=== PATIENT | male | born 1955 | race Caucasian/White ===

== ENCOUNTER 2020-07-10 07:21 | Outpatient (REF) | payer OTHER, SELFPAY ==
[2020-07-10 11:15] LABS: MANUAL DIFF FLAG NO
[2020-07-10 11:28] LABS: Basophils Absolute Auto 0.1 X10*3/uL (0.0-0.2); Basophils Percent Auto 1.1 % (0-2); Eosinophils Absolute Auto 0.3 X10*3/uL (0.0-0.4); Eosinophils Percent Auto 5.1 % (0-4); Hematocrit 49.2 % (42-52); Hemoglobin 15.4 g/dl (14.0-18.0); Imm Gran Abs Auto 0.01 X10*3/uL (0.00-0.03); Imm Gran Pct Auto 0.2 % (0.0-0.4); Lymphocytes Absolute Auto 2.5 X10*3/uL (1.2-4.9); Lymphocytes Percent Auto 43.9 % (20-40); Mean Corpuscular HGB Conc 31.3 g/dl (31.0-36.0); Mean Corpuscular Hemoglobin 26.2 pg (27.0-33.0); Mean Corpuscular Volume 83.7 fL (80-98); Mean Platelet Volume 10.6 fL (9.4-12.4); Monocytes Absolute Auto 0.6 X10*3/uL (0.1-1.2); Monocytes Percent Auto 9.8 % (2-11); Neutrophils Absolute Auto 2.3 X10*3/uL (2.0-8.3); Neutrophils Percent Auto 39.9 % (45-73); Platelet Count 240 X10*3/uL (160-400); Red Blood Count 5.88 X10*6/uL (4.60-5.80); Red Cell Distribution Width 13.9 % (11.0-16.0); White Blood Count 5.7 X10*3/uL (4.8-10.8)
[2020-07-10 11:50] LABS: Alanine Aminotransferase 36 U/L (0-40); Albumin Level 4.3 g/dL (3.5-5.0); Alkaline Phosphatase 65 U/L (39-117); Anion Gap 12 (12-20); Aspartate Amino Transferase 17 U/L (5-37); Blood Urea Nitrogen 23 mg/dL (9-16); Carbon Dioxide 30 mmol/L (22-29); Chloride 105 mmol/L (96-108); Cholesterol 146 mg/dL; Estimated Glomerular Filt Rate > 60; Glucose Fasting 76 mg/dL (60-99); HDL Cholesterol 52 mg/dL; LDL Cholesterol Calculated 83 mg/dl; Potassium 3.9 mmol/L (3.3-5.1); Sodium 143 mmol/L (135-145); Total Protein 7.5 g/dL (6.5-8.0); Triglycerides 59 mg/dL
[2020-07-10 11:52] LABS: Prostate Specific Antigen 1.75 ng/mL (<0.05-4.0)
== END 2020-07-10 07:22 | disposition home or self-care (01) ==
LOC: HO.HMGCLDS 07:21
PROVIDERS: PCP Internal Medicine; Visit Provider Internal Medicine
DX: Z00.00 Encounter for general adult medical examination without abnormal findings (principal); Z13.220 Encounter for screening for lipoid disorders; Z12.5 Encounter for screening for malignant neoplasm of prostate
CPT/HCPCS: 36415; 80053; 80061; 84153; 85025

== ENCOUNTER 2021-06-19 08:21 | Outpatient (REF) | payer OTHER, SELFPAY ==
[2021-06-19 11:25] LABS: MANUAL DIFF FLAG NO
[2021-06-19 11:41] LABS: Basophils Absolute Auto 0.1 X10*3/uL (0.0-0.2); Basophils Percent Auto 0.8 % (0-2); Eosinophils Absolute Auto 0.3 X10*3/uL (0.0-0.4); Eosinophils Percent Auto 4.7 % (0-4); Hemoglobin 16.1 g/dl (14.0-18.0); Imm Gran Abs Auto 0.01 X10*3/uL (0.00-0.03); Imm Gran Pct Auto 0.2 % (0.0-0.4); Lymphocytes Absolute Auto 2.5 X10*3/uL (1.2-4.9); Lymphocytes Percent Auto 42.9 % (20-40); Mean Corpuscular HGB Conc 31.6 g/dl (31.0-36.0); Mean Corpuscular Hemoglobin 26.2 pg (27.0-33.0); Mean Corpuscular Volume 82.9 fL (80.0-98.0); Mean Platelet Volume 10.4 fL (9.4-12.4); Monocytes Absolute Auto 0.5 X10*3/uL (0.1-1.2); Monocytes Percent Auto 8.3 % (2-11); Neutrophils Absolute Auto 2.6 x10*3/uL (2.0-8.3); Neutrophils Percent Auto 43.1 % (45-73); Platelet Count 256 X10*3/uL (160-400); Red Blood Count 6.15 X10*6/uL (4.60-5.80); White Blood Count 5.9 X10*3/uL (4.8-10.8)
[2021-06-19 12:13] LABS: Alanine Aminotransferase 33 U/L (0-40); Albumin Level 4.2 g/dL (3.5-5.0); Alkaline Phosphatase 65 U/L (39-117); Anion Gap 12 (12-20); Aspartate Amino Transferase 15 U/L (5-37); Bilirubin Total 0.9 mg/dL (0.0-1.0); Blood Urea Nitrogen 18 mg/dL (9-16); Calcium 9.8 mg/dL (8.4-10.2); Carbon Dioxide 28 mmol/L (22-29); Chloride 105 mmol/L (96-108); Cholesterol 148 mg/dL; Estimated Glomerular Filt Rate > 60; Glucose Fasting 88 mg/dL (60-99); HDL Cholesterol 45 mg/dL; LDL Cholesterol Calculated 85 mg/dl; Potassium 4.2 mmol/L (3.3-5.1); Sodium 141 mmol/L (135-145); Total Protein 7.5 g/dL (6.5-8.0); Triglycerides 94 mg/dL
[2021-06-19 12:21] LABS: Prostate Specific Antigen Scr 2.12 ng/mL (<0.05-4.0)
== END 2021-06-19 08:22 | disposition home or self-care (01) ==
LOC: HO.HMGCLDS 08:21
PROVIDERS: Visit Provider Internal Medicine
DX: Z12.5 Encounter for screening for malignant neoplasm of prostate (principal); E78.00 Pure hypercholesterolemia, unspecified; N40.0 Benign prostatic hyperplasia without lower urinary tract symptoms; K57.90 Diverticulosis of intestine, part unspecified, without perforation or abscess without bleeding
CPT/HCPCS: 36415; 80053; 80061; 84153; 85025

== ENCOUNTER 2022-07-04 07:32 | Outpatient (REF) | payer MEDICARE, OTHER, SELFPAY ==
[2022-07-04 11:26] LABS: MANUAL DIFF FLAG NO
[2022-07-04 11:58] LABS: Basophils Absolute Auto 0.1 X10*3/uL (0.0-0.2); Eosinophils Absolute Auto 0.2 X10*3/uL (0.0-0.4); Eosinophils Percent Auto 3.6 % (0-4); Hematocrit 50.8 % (42.0-52.0); Hemoglobin 15.9 g/dl (14.0-18.0); Imm Gran Abs Auto 0.01 X10*3/uL (0.00-0.03); Imm Gran Pct Auto 0.2 % (0.0-0.4); Lymphocytes Absolute Auto 2.3 X10*3/uL (1.2-4.9); Lymphocytes Percent Auto 39.9 % (20-40); Mean Corpuscular HGB Conc 31.3 g/dl (31.0-36.0); Mean Corpuscular Hemoglobin 25.8 pg (27.0-33.0); Mean Corpuscular Volume 82.5 fL (80.0-98.0); Mean Platelet Volume 10.4 fL (9.4-12.4); Monocytes Absolute Auto 0.6 X10*3/uL (0.1-1.2); Monocytes Percent Auto 10.4 % (2-11); Neutrophils Absolute Auto 2.6 x10*3/uL (2.0-8.3); Neutrophils Percent Auto 44.9 % (45-73); Platelet Count 261 X10*3/uL (160-400); Red Blood Count 6.16 X10*6/uL (4.60-5.80); Red Cell Distribution Width 14.4 % (11.0-16.0); White Blood Count 5.8 X10*3/uL (4.8-10.8)
[2022-07-04 12:47] LABS: Alanine Aminotransferase 33 U/L (0-40); Albumin Level 4.2 g/dL (3.5-5.0); Alkaline Phosphatase 57 U/L (39-117); Anion Gap 12 (12-20); Aspartate Amino Transferase 19 U/L (5-37); Bilirubin Total 0.8 mg/dL (0.0-1.0); Blood Urea Nitrogen 21 mg/dL (9-16); Calcium 9.4 mg/dL (8.4-10.2); Carbon Dioxide 29 mmol/L (22-29); Chloride 106 mmol/L (96-108); Cholesterol 156 mg/dL; Estimated Glomerular Filt Rate > 60; Glucose Fasting 92 mg/dL (60-99); HDL Cholesterol 45 mg/dL; LDL Cholesterol Calculated 97 mg/dl; Potassium 4.3 mmol/L (3.3-5.1); Prostate Specific Antigen Scr 1.93 ng/mL (<0.05-4.0); Sodium 143 mmol/L (135-145); Total Protein 7.2 g/dL (6.5-8.0); Triglycerides 72 mg/dL
== END 2022-07-04 07:33 | disposition home or self-care (01) ==
LOC: HO.HMGCLDS 07:32
PROVIDERS: PCP Internal Medicine; Visit Provider Internal Medicine
DX: Z00.00 Encounter for general adult medical examination without abnormal findings (principal); Z12.5 Encounter for screening for malignant neoplasm of prostate
CPT/HCPCS: 36415; 80053; 80061; 84153; 85025

== ENCOUNTER 2023-07-08 07:18 | Outpatient (REF) | payer MEDICARE, OTHER, SELFPAY ==
[2023-07-08 10:14] LABS: MANUAL DIFF FLAG NO
[2023-07-08 10:36] LABS: Basophils Absolute Auto 0.1 X10*3/uL (0.0-0.2); Basophils Percent Auto 0.8 % (0-2); Eosinophils Absolute Auto 0.3 X10*3/uL (0.0-0.4); Hematocrit 51.1 % (42.0-52.0); Hemoglobin 16.3 g/dl (14.0-18.0); Imm Gran Abs Auto 0.01 X10*3/uL (0.00-0.03); Imm Gran Pct Auto 0.2 % (0.0-0.4); Lymphocytes Absolute Auto 2.4 X10*3/uL (1.2-4.9); Mean Corpuscular HGB Conc 31.9 g/dl (31.0-36.0); Mean Corpuscular Hemoglobin 26.5 pg (27.0-33.0); Mean Platelet Volume 10.2 fL (9.4-12.4); Monocytes Absolute Auto 0.6 X10*3/uL (0.1-1.2); Monocytes Percent Auto 9.9 % (2-11); Neutrophils Absolute Auto 2.7 x10*3/uL (2.0-8.3); Neutrophils Percent Auto 45.1 % (45-73); Platelet Count 254 X10*3/uL (160-400); Red Blood Count 6.16 X10*6/uL (4.60-5.80); Red Cell Distribution Width 14.4 % (11.0-16.0); White Blood Count 6.1 X10*3/uL (4.8-10.8)
[2023-07-08 11:12] LABS: Prostate Specific Antigen Scr 2.33 ng/mL (<0.05-4.0)
[2023-07-08 11:27] LABS: Alanine Aminotransferase 33 U/L (0-40); Albumin Level 4.1 g/dL (3.5-5.0); Alkaline Phosphatase 57 U/L (39-117); Anion Gap 13 (12-20); Aspartate Amino Transferase 19 U/L (5-37); Bilirubin Total 0.7 mg/dL (0.0-1.0); Blood Urea Nitrogen 19 mg/dL (9-16); Calcium 9.7 mg/dL (8.4-10.2); Carbon Dioxide 26 mmol/L (22-29); Chloride 106 mmol/L (96-108); Cholesterol 142 mg/dL (<200); Estimated Glomerular Filt Rate > 60; Glucose Fasting 93 mg/dL (60-99); HDL Cholesterol 45 mg/dL (>40); LDL Cholesterol Calculated 79 mg/dL (<100); Sodium 141 mmol/L (135-145); Total Protein 7.7 g/dL (6.5-8.0); Triglycerides 94 mg/dL (<150)
== END 2023-07-08 07:19 | disposition home or self-care (01) ==
LOC: HO.HMGCLDS 07:18
PROVIDERS: PCP Internal Medicine; Visit Provider Internal Medicine
DX: E78.00 Pure hypercholesterolemia, unspecified (principal); R35.1 Nocturia; K57.90 Diverticulosis of intestine, part unspecified, without perforation or abscess without bleeding; Z12.5 Encounter for screening for malignant neoplasm of prostate
CPT/HCPCS: 36415; 80053; 80061; 84153; 85025

== ENCOUNTER 2023-09-14 10:38 | Day surgery (SDC) | payer MEDICARE, OTHER, SELFPAY ==
[2023-09-10 14:41] VITALS: BMI 24.5
--- NOTE | 2023-09-11 10:04 | P.CONAN_ITS ---
Documented by User: Arleen Chopra NP 09/11/23 10:04 HPI - Anesthesia Eval Consult details Narrative: 68yo M for Colonoscopy [facility] Past Medical History Medical History Hyperlipidemia Surgical History Surgical History Hx of knee surgery History of esophagogastroduodenoscopy (EGD) H/O colonoscopy Social History Social History Patient Tobacco Use Status: Never used Tobacco Use of substances other than those prescribed or required for medical reasons: No Are you DNR?: No Advance Directives: No Advance Directives Information Provided: Yes Meds Allergies Allergy/AdvReac Type Severity Reaction Status Date / Time No Known Allergies Allergy Verified 09/10/23 14:37 Home Medications ?Medication ?Instructions ?Recorded ?Confirmed ?Last Taken ?Type calcium carbonate (Calcium 500) 500 mg PO DAILY 09/10/23 09/14/23 09/12/23 History glucosamine sulfate 500 mg tablet 500 mg PO DAILY 09/10/23 09/14/23 09/12/23 History (Glucosamine) magnesium 250 mg tablet 500 mg PO DAILY 09/10/23 09/14/23 09/12/23 History multivitamin 1 tab PO DAILY 09/10/23 09/14/23 09/12/23 History simvastatin 20 mg tablet 20 mg PO BEDTIME 09/10/23 09/14/23 09/12/23 History Exam Height,Weight and Vital Signs: Height 5 ft 9 in Weight 75.296 kg Assessment and Plan Assessment Anesthesia Assessment: Chart Reviewed Documented by User: Jordin Hensley MD 09/14/23 12:33 [facility] Past Medical History Medical History Hyperlipidemia Family History Family history of problems with anesthesia: No Surgical History Surgical History Hx of knee surgery History of esophagogastroduodenoscopy (EGD) H/O colonoscopy History of Problems with Anesthesia: No Social History Social History Patient Tobacco Use Status: Never used Tobacco Use of substances other than those prescribed or required for medical reasons: No Are you DNR?: No Advance Directives: No Advance Directives Information Provided: Yes Meds Allergies Allergy/AdvReac Type Severity Reaction Status Date / Time No Known Allergies Allergy Verified 09/10/23 14:37 Home Medications ?Medication ?Instructions ?Recorded ?Confirmed ?Last Taken ?Type calcium carbonate (Calcium 500) 500 mg PO DAILY 09/10/23 09/14/23 09/12/23 History glucosamine sulfate 500 mg tablet 500 mg PO DAILY 09/10/23 09/14/23 09/12/23 History (Glucosamine) magnesium 250 mg tablet 500 mg PO DAILY 09/10/23 09/14/23 09/12/23 History multivitamin 1 tab PO DAILY 09/10/23 09/14/23 09/12/23 History simvastatin 20 mg tablet 20 mg PO BEDTIME 09/10/23 09/14/23 09/12/23 History Exam Airway Mallampati Class: II TM Dist: >3cm Neck ROM: Full Loose/Missing/Broken Teeth: No Heart: rrr Lungs: cta Assessment and Plan Assessment Anesthesia Assessment: Anesthesia Plan Discussed Final Anesthetic Review Family History of Problems with Anesthesia: No History of Problems with Anesthesia: No NPO: Yes ASA Class: II Final Preanesthetic Review: No Changes in Pt Med Stat, Meds/Allgs Chart Reviewed, Consent Obtained/Reviewed and Anes Risks/Benef Reviewed Patient Risk: Intermediate Procedure Risk: Intermediate Anesthetic Plan Anesthetic Plan: TIVA Disposition: Standard PACU
[2023-09-14 10:42] VITALS: BP 145/80; PULSE 80; RESP 16; TEMP 36.2; O2SAT 100; BMI 22.9
[2023-09-14] MEDS: Lactated Ringers 1,000 ML 100 ML IVCONT (11:00)
[2023-09-14 13:30] VITALS: BP 93/55; PULSE 66; RESP 16; TEMP 36.8; O2SAT 94
--- NOTE | 2023-09-14 13:35 | PM.OP ---
Brief Operative Note Date of Service: 09/14/23 Pre-op diagnosis: Screening Post-op diagnosis: other (Colon polyps) Procedure: Colonoscopy to the cecum and TI with cold snare polypectomy x 2. Surgeon: Alexis Moon MD Anesthesia: MAC Was an Physician In Private Practice used for this Procedure?: No Estimated blood loss (mL): 2.0 Pathology: other (A. Ascending colon polyp B. Rectal polyp) Condition: stable Disposition: PACU
[2023-09-14 13:45] VITALS: BP 103/61; PULSE 72; RESP 16; O2SAT 99
[2023-09-14 14:00] VITALS: BP 110/69; PULSE 71; RESP 16; TEMP 36.8; O2SAT 99
--- NOTE | 2023-09-14 14:50 | OP_ITS ---
DATE OF SERVICE: 09/14/2023 SURGEON: Alexis Moon MD INDICATIONS: The patient presents for evaluation of personal history of tubular adenoma of the colon and colorectal cancer screening. Full consent has been obtained from him for this, including risks of bleeding and perforation. PREOPERATIVE DIAGNOSIS: POSTOPERATIVE DIAGNOSIS: PROCEDURE PERFORMED: Colonoscopy to cecum and terminal ileum with cold snare polypectomy. ESTIMATED BLOOD LOSS: COMPLICATIONS: ANESTHESIA: Monitored anesthesia care. ASSISTANTS: SPECIMENS: PREOPERATIVE DIAGNOSES: Colorectal cancer screening and personal history of tubular adenoma of the colon. POSTOPERATIVE DIAGNOSES: Colorectal cancer screening, personal history of tubular adenoma of the colon, small colon polyps, diverticulosis, and internal hemorrhoids. DESCRIPTION OF PROCEDURE: The patient was placed in the left lateral decubitus position. The digital rectal exam revealed no abnormalities. The Olympus video pediatric colonoscope was then entered into the rectum and advanced easily to the cecum. Once in the cecum, I did identify normal-appearing cecal pouch with appendiceal orifice and a normal-appearing ileocecal valve. The entire cecum and ileocecal valve appeared normal. The terminal ileum was cannulated and appeared normal. The scope was withdrawn back in the colon. The scope was slowly withdrawn assessing all mucosal surfaces carefully. Preparation was excellent. In the proximal ascending colon, was an approximately 5 mm polyp, which was removed by cold snare polypectomy and recovered by suction. The polypectomy site appeared clean, without any sign of residual polyp nor significant bleeding. There was a mild amount of sigmoid diverticulosis. I did not visualize any sign of colitis nor angiodysplasias. The only other polyp I visualized was in the distal rectum. This was approximately 4 mm in diameter and removed by cold snare polypectomy as well. The polyp was recovered by suction. The polypectomy site appeared clean, without any sign of residual polyp nor any significant bleeding. The scope was retroflexed, visualizing some internal hemorrhoids as well. The scope was straightened and withdrawn from the patient. He tolerated the procedure well and was returned to the recovery area in stable condition. IMPRESSION: 1. Colon polyps. 2. Diverticulosis. 3. Internal hemorrhoids. PLAN: The results of the pathology will be checked. I would recommend a repeat colonoscopy in 5 years. He will, otherwise, see me on a p.r.n. basis. MD JEREMY Reina/SILVIA / [id number]
== END 2023-09-14 15:08 | disposition home or self-care (01) ==
PROVIDERS: PCP Internal Medicine; Visit Provider Internal Medicine
PROC: 0DJD8ZZ Inspection of Lower Intestinal Tract, Via Natural or Artificial Opening Endoscopic (ICD-10-PCS; CPT 45378; principal; 2023-09-14 10:50)
DX: Z12.11 Encounter for screening for malignant neoplasm of colon (principal); D12.2 Benign neoplasm of ascending colon; D12.8 Benign neoplasm of rectum; K57.30 Diverticulosis of large intestine without perforation or abscess without bleeding; K64.8 Other hemorrhoids; Z86.010 Personal history of colon polyps
CPT/HCPCS: 45385; 88305; J2704

== ENCOUNTER 2024-10-19 15:01 | Outpatient (AMB) | payer MEDICARE, OTHER, SELFPAY ==
--- NOTE | 2024-10-19 15:01 | A.OFFPC_ITS ---
Vital Signs 10/19/24 15:06 Height 5 ft 8.5 in Weight 72.575 kg BMI 24.0 BP 136/76 Blood Pressure Location Lt brachial Position Sitting Respiration 16 Pulse 81 Pulse Source Pulse Oximeter Temp 97.5 F Pulse Oximetry (%) 96 Oxygen Delivery Method Room Air Intake Visit Reasons: Annual Marketing Communications Specialist Required: No Accompanied by: Self / Same As Patient Allergies No Known Allergies Allergy (Verified 10/19/24 15:01) Tobacco use date assessed: 10/19/24 HPI HPI Comments History of Present Illness Details 69-year-old male with history of hyperli pidemia presents to the office today for management of chronic conditions, to establish care. Lives at home and feels safe there. Retired. Works out regularly 5 hours weekly with cardio, weights, and core exercises. Follows a healthy diet. No significatn alcohol use. No history of cigarette smoking. No drugs including marijuana. Hyperlipidemia-on simvastatin Concerns: He is concerned about her his prostate. He is reporting intermittent nocturia between 1-3 times per night. He does occasionally have urinary urgency during the day. No weak stream or incomplete bladder emptying. Health maintenance: Last colonoscopy 09/2023 with 5 year follow-up advised, Dr. Moon due to tubular adenoma Due for screening PSA Goes to the eye doctor and dentist regularly Wear sunscreen ROS: General: No fevers, malaise, unintentional weight loss HEENT: No blurred vision, diplopia. No sore throat, nasal congestion, rhinorrhea, sinus pain, ear pain. No hearing loss Neck - no adenopathy Cardiovascular: No chest pain, palpitations, or leg edema Respiratory: No shortness of breath, wheezing, cough GI: No dysphagia, odynophagia, globus sensation. No abdominal pain, nausea, vomiting, diarrhea, constipation, melena, hematochezia : No dysuria, hematuria, increased urinary frequency, decreased urinary output. No testicular swelling or pain. No penile discharge MSK: No myalgia, back pain, arthralgias Neuro: No headaches, weakness, paresthesias Psych: no depression/anxiery. No AH/VH. No SI/HI Skin: No rashes or lesions EXAM: Constitutional - Awake and Alert, No apparent distress Eyes - PERRLA, EOMI. Anicteric Ears - external ears normal, canals clear, TMs intact and pearly rojas with good cone of light Nose- septum midline, nares clear, no sinus tenderness Mouth/throat- mucosa moist, tongue and uvula midline, no erythema/edema or tonsillar adenopathy. Neck-trachea midline, thyroid symmetric without palpable nodules, no adenopathy Cardiovascular - S1S2, RRR, No edema Respiratory - Normal lung expansion, Normal respiratory effort, No respiratory distress, CTA bilaterally Gastrointestinal - NT / ND; +BS; No rebound or guarding . Good rectal tone, 1+ prostate enlargement - No CVA tenderness. Extremities - no calf tenderness bilaterally, no swelling Musculoskeletal - Normal inspection, normal ROM Skin - Warm/Dry, no concerning lesions Neurological - Alert & oriented x3, CN II-XII in tact, 5/5 strength BUE and BLE, 2+ patellar reflexes, sensation intact Psychological - Appropriate affect [facility] Medical History (Updated 10/19/24 @ 17:25 by JODY Dunham) Tubular adenoma BPH (benign prostatic hyperplasia) Hyperlipidemia Surgical History (Updated 10/18/24 @ 15:59 by Ivette Metcalf) Hx of knee surgery History of esophagogastroduodenoscopy (EGD) H/O colonoscopy (~09/14/23) Social History Patient Tobacco Use Status: Never used Tobacco e-Cigarette/Vaping Use: Never Used Questionnaire PHQ-9 Over the last 2 weeks, how often have you been bothered by any of the following problems? 1. Little interest or pleasure in doing things: not at all 2. Feeling down, depressed, or hopeless: not at all 3. Trouble falling or staying asleep, or sleeping too much: not at all 4. Feeling tired or having little energy: not at all 5. Poor appetite or overeating: not at all 6. Feeling bad about yourself - or that you are a failure or have let yourself or your family down: not at all 7. Trouble concentrating on things, such as reading the newspaper or watching television: not at all 8. Moving or speaking so slowly that other people could have noticed. Or the opposite - being so fidgety or restless that you have been moving around a lot more than usual: not at all 9. Thoughts that you would be better off or of hurting yourself in some way: not at all Total score: 0 Source: Developed by Drs. Alexis Ramirez, Deja Dunaway, Rad Pepe and colleagues, with an educational ezequiel from [employer]. Thrive Questionnaire Date Thrive assessed: 10/19/24 I am a: Patient What is your living situation today?: I have a steady place to live Within the past 12 months, did the food you bought not last and you didn't have the money to get more?: Never true Within the past 12 months, did you worry whether your food would run out before you got money to buy more?: Never true Do you have trouble paying for medicines?: No Do you have trouble getting transportation to medical appointments?: No Do you have trouble paying your heating and electricity bill?: No Do you have trouble taking care of your child, family member or friend?: No Do you have trouble with day-to-day activities such as bathing, preparing meals, shopping, managing finances, etc.?: No Are you currently unemployed and looking for a job?: No Are you interested in more education?: No THRIVE Score: 0 AUDIT C Alcohol Use Questionnaire (AUDIT-C) 1. How often do you have a drink containing alcohol?: Never Total Score: 0 PAT-7 AMB Questionnaire PAT-7 Date PAT - 7 assessed: 10/19/24 Feeling nervous, anxious, or on edge: 0 = Not at all Not being able to stop or control worryin = Not at all Worrying too much about different things: 0 = Not at all Trouble relaxin = Not at all Being so restless that it is hard to sit still: 0 = Not at all Feeling afraid as if something awful might happen: 0 = Not at all Source: Developed by Drs. Alexis Ramirez, Deja Dunaway, Rad Pepe and colleagues, with an educational ezequiel from [employer]. Physical exam (Primary Care) Vital Signs: Last Vital Signs Temp 97.5 F 10/19/24 15:06 Pulse 81 10/19/24 15:06 Resp 16 10/19/24 15:06 BP 136/76 10/19/24 15:06 Pulse Ox 96 10/19/24 15:06 Oxygen Delivery Method Room Air 10/19/24 15:06 BMI result Body Mass Index 24.0 Tobacco/Smoking Status: Tobacco use Status Tobacco use date assessed 10/19/24 10/19/24 15:09 Patient Tobacco Use Status Never used Tobacco 10/19/24 15:09 e-Cigarette/Vaping Use Never Used 10/19/24 15:09 PHQ-9: PHQ-9 Score PHQ-9: Total score 0 10/19/24 15:44 Thrive Assessment: Date of Thrive Assessment Date Thrive assessed 10/19/24 10/19/24 15:44 Coding Level of Care Code New Pt Level 4 (69407) Complex EM visit Add On G2211 Diagnoses BPH (benign prostatic hyperplasia) N40.0 Hyperlipidemia E78.5 Tubular adenoma D36.9 Assessment & Plan Assessment & Plan (1) BPH (benign prostatic hyperplasia): Code(s): N40.0 - Benign prostatic hyperplasia without lower urinary tract symptoms Category: Medical Plan: Enlarged prostate on exam. Not overly symptomatic, not interested in medication at this time. PSA ordered (2) Hyperlipidemia: Code(s): E78.5 - Hyperlipidemia, unspecified Category: Medical Plan: Lipid panel ordered. Continue simvastatin (3) Tubular adenoma: Code(s): D36.9 - Benign neoplasm, unspecified site Category: Medical Plan: Up-to-date with colonoscopies. Plan Follow-up in the office for wellness visit Labs to be completed following visit today Orders: Orders Basic Metabolic Panel Today R35.1 - Nocturia Liver Panel Today R35.1 - Nocturia Prostate Specific Antigen Today R35.1 - Nocturia Complete Blood Count Auto Diff Today R35.1 - Nocturia Lipid Panel Today R35.1 - Nocturia
[2024-10-19 15:06] VITALS: BP 136/76; PULSE 81; RESP 16; TEMP 36.4; O2SAT 96; BMI 24.0
--- OUTSIDE RECORDS SUMMARY | 2024-10-19 15:30 | XMS_ITS | Patient Health Record ---
Author Organization [facility] Address [address] [place] [address] Care Team Providers Care Mat Weaver Name Role Phone Ishan (RETIRED) Gareth TEMPLE Primary Care Provide r Unavailable Alexis Moon Unavailable [phone] Allergies No Known Allergies Reason For Referral No Information Medications Medication SIG (Take, Route, Fr equency, Duration) Notes Start Date End Date Status Xyzal Active Magnesium 500 MG 1 tablet with a meal Orally Once a day Active Calcium 500 MG 1 tablet Orally Once a day Active Multi Vit/Fl 0.25 MG 1 tablet Orally Once a day Active Simvastatin 20 MG 1 tablet in the even ing Orally Once a day Active Glucosamine once a day/hs Acti ve Immunizations Vaccine Route Administration Date Status Comme nts Influenza Unknown 01/04/2018 Administered Problems Problem Type SNOMED Code ICD Code Onset Dates Problem Status W/U Status Risk Notes Problem 061455190 Encounter for screening for malignant neoplasm of colon (Z12.11) Active confirmed Problem Diverticular disease of colon (979274312) Diverticulosis of large intestine without perforation or abscess without bleeding (K57.30) Active confirmed Problem 816685016 Hx of adenomatou s colonic polyps (Z86.010) Active confirmed Problem 295724548552739 Pre-procedural examination (Z01.818) Active confirmed Plan Of Treatment Pending Test Test Name Order Date Pathology 09/14/2023 Future Test Test Name Order Date COLONOSCOPY 07/27/2012 COLONOSCOPY 02/16/2018 COLONOSCOPY 06/25/2023 Insurance Providers Payer Name Payer Address Payer Phone Subscriber Number Group Number Insured Name Patient Relationship to Insured Coverage Start Date Coverage End Date MEDICARE OF [place] [address] [facility] [address] [id number] BHARATH IRVIN Self - patient is the insured [facility] [address] [facility] [phone] [id number] BHARATH IRVIN Self - patient is the insured Medical (General) History Medical History History ICD Code Colonoscopy 07-05-2007 and 2012-small tubular adenoma removed-also, had diverticulosis and internal hemorrhoids EGD with removal of esophage al foregin body (food bolus) 08-27-1998--had a normal F/U EGD in 11/1998 Hyperlipidemia Denies [place],DM,CVA,Lung disease,renal dise ase Negative screening colonoscopy in [facility] of 2018 Surgical History Surgery Date(Month/Year) Knee surgery x 3 (2)left (1)right 2004
== END 2024-10-19 15:39 | disposition home or self-care (01) ==
LOC: HO.HMCHD 15:02
PROVIDERS: PCP Internal Medicine; Visit Provider Physician Assistant
DX: N40.0 Benign prostatic hyperplasia without lower urinary tract symptoms (principal); E78.5 Hyperlipidemia, unspecified; D36.9 Benign neoplasm, unspecified site

== ENCOUNTER → 2024-10-19 15:01 | Outpatient (BNVA) | payer MEDICARE, OTHER, SELFPAY | PROVIDERS: PCP Internal Medicine; Visit Provider Physician Assistant | DX: N40.1 Benign prostatic hyperplasia with lower urinary tract symptoms (principal); R35.1 Nocturia; E78.5 Hyperlipidemia, unspecified; Z79.899 Other long term (current) drug therapy; Z13.30 Encounter for screening examination for mental health and behavioral disorders, unspecified | CPT/HCPCS: 96127; 99202 ==

== ENCOUNTER 2024-10-20 07:12 | Outpatient (REF) | payer MEDICARE, OTHER, SELFPAY ==
--- OUTSIDE RECORDS SUMMARY | 2024-10-20 07:14 | XMS_ITS | Patient Health Record ---
Author Organization [facility] Address [address] [place] [address] Care Team Providers Care Medical Technologist Name Role Phone Ishan (RETIRED) Gareth TEMPLE Primary Care Provide r Unavailable Alexis Moon Unavailable [phone] Allergies No Known Allergies Reason For Referral [...] Problem Status W/U Status Risk Notes Problem 809541029 Encounter for screening for malignant neoplasm of colon (Z12.11) Active confirmed Problem Diverticulosis o f large intestine without perforation or abscess without bleeding (K57.30) Active confirmed Problem 445529236 Hx of adenomatou s colonic polyps (Z86.010) Active confirmed Problem 276935205567256 Pre-procedural examination (Z01.818) Active confirmed Plan Of Treatment Pending Test Test Name Order Date Pathology 09/14/2023 Future Test Test Name Order Date COLONOSCOPY 07/27/2012 COLONOSCOPY 02/16/2018 COLONOSCOPY 06/25/2023 Insurance Providers Payer Name Payer Address Payer Phone Subscriber Number Group Number Insured Name Patient Relationship to Insured Coverage Start Date Coverage End Date MEDICARE OF [place] [address] [place] [address] [phone] [id number] BHARATH IRVIN Self - patient is the insured [facility] [address] [place] [phone] [id number] BHARATH IRVIN Self - patient is the insured Medical (General) History Medical History History ICD Code Colonoscopy 07-05-2007 and 2012-small tubular adenoma removed-also, had diverticulosis and internal hemorrhoids EGD with removal of esophage al foregin body (food bolus) 08-27-1998--had a normal F/U EGD in 11/1998 Hyperlipidemia Denies [place],DM,CVA,Lung disease,renal dise ase Negative screening colonoscopy in [facility] of 2017 Surgical History Surgery Date(Month/Year) Knee surgery x 3 (2)left (1)right 2004
[2024-10-20 10:07] LABS: MANUAL DIFF FLAG NO
[2024-10-20 10:10] LABS: Hematocrit 46.0 % (42.0-52.0); Hemoglobin 15.1 g/dl (14.0-18.0); Imm Gran Abs Auto 0.01 X10*3/uL (0.00-0.03); Imm Gran Pct Auto 0.2 % (0.0-0.4); Lymphocytes Absolute Auto 2.1 X10*3/uL (1.2-4.9); Mean Corpuscular HGB Conc 32.8 g/dl (31.0-36.0); Mean Corpuscular Hemoglobin 26.6 pg (27.0-33.0); Mean Corpuscular Volume 81.1 fL (80.0-98.0); NRBC Abs Auto 0.000 X10*3/uL (0.0-0.012); NRBC Pct Auto 0.0 /100WBC (0.0-0.2); Platelet Count 244 X10*3/uL (160-400); Red Blood Count 5.67 X10*6/uL (4.60-5.80); White Blood Count 4.8 X10*3/uL (4.8-10.8)
[2024-10-20 10:40] LABS: Alanine Aminotransferase 32 U/L (0-40); Albumin Level 4.2 g/dL (3.5-5.0); Alkaline Phosphatase 65 U/L (39-117); Anion Gap 12 (12-20); Aspartate Amino Transferase 18 U/L (5-37); Blood Urea Nitrogen 19 mg/dL (9-16); Calcium 9.1 mg/dL (8.4-10.2); Carbon Dioxide 28 mmol/L (22-29); Chloride 106 mmol/L (96-108); Cholesterol 133 mg/dL (<200); Estimated Glomerular Filt Rate > 60; HDL Cholesterol 43 mg/dL (>40); Potassium 4.0 mmol/L (3.3-5.1); Sodium 142 mmol/L (135-145); Total Protein 7.2 g/dL (6.5-8.0); Triglycerides 55 mg/dL (<150)
[2024-10-20 11:01] LABS: Prostate Specific Antigen 5.15 ng/mL (<0.05-4.0)
== END 2024-10-20 07:13 | disposition home or self-care (01) ==
LOC: HO.HMGCLDS 07:12
PROVIDERS: PCP Physician Assistant; Visit Provider Physician Assistant
DX: R35.1 Nocturia (principal)
CPT/HCPCS: 36415; 80048; 80061; 80076; 84153; 85025

== ENCOUNTER 2024-12-19 07:47 | Outpatient (AMB) | payer MEDICARE, OTHER, SELFPAY ==
--- OUTSIDE RECORDS SUMMARY | 2023-09-14 06:50 | XMS_ITS ---
Author Organization [facility] Address [address] [place] [address] Care Team Providers Care Dobby Looms Pegger Name Role Phone Ishan (RETIRED) Gareth TEMPLE Primary Care Provide r Unavailable Alexis Moon Unavailable [phone] REASON FOR VISIT screening,hx polyps Problems Problem Type SNOMED Code ICD Code Onset Dates Problem Status W/U Status Risk Notes Problem Diverticular disease of colon (950322181) Diverticulosis of large intestine without perforation or abscess without bleeding (K57.30) Active confirmed Encounters Encounter Location Date Provider Diagnosis [facility] Outpatient [address] [place] [phone] 09/14/2023 Alexis Moon Encounter for scre ening [...] * BHARATH IRVIN GDOB:[birth year] (69 yo M)Acc No.[id number]:09/14/2023 COLON WITH MAC Patient: BHARATH ONTIVEROS Provider: Marcel Moon MD :1955 A ge:68 Y S ex:Male Date:09/14/2023 Address:[address] [place] [address], [id number] Pcp:Gareth Olmstead (RETIRED )MD Subjective: * Chief [...] 0 09/14/2023 Generated for Kalyani butcher/Coretta/Melitting on: 0 12/19/2024 07:50 AM EDT
--- OUTSIDE RECORDS SUMMARY | 2024-12-19 07:50 | XMS_ITS | Patient Health Record ---
Author Organization [facility] Address [address] [place] [address] Care Team Providers Care Brazing Machine Tender Name Role Phone Ishan (RETIRED) Gareth TEMPLE Primary Care Provide r Unavailable Alexis Moon Unavailable [phone] Allergies No Known Allergies Reason For Referral [...] Problem Status W/U Status Risk Notes Problem 422186299 Encounter for screening for malignant neoplasm of colon (Z12.11) Active confirmed Problem Diverticular disease of colon (981924455) Diverticulosis of large intestine without perforation or abscess without bleeding (K57.30) Active confirmed Problem 031678677 Hx of adenomatou s colonic polyps (Z86.010) Active confirmed Problem 403273889191257 Pre-procedural examination (Z01.818) Active confirmed Plan Of [...] [facility] [address] [id number] BHARATH IRVIN Self - patient is the insured [facility] [address] [facility] [phone] [id number] BHARATH IRVIN Self - patient is the insured Medical (General) History Medical History History ICD Code Colonoscopy 07-05-2007 and 2012-small tubular adenoma removed-also, had diverticulosis and internal hemorrhoids EGD with removal of esophage al foregin body (food bolus) 08-27-1998--had a normal F/U EGD in 11/1998 Hyperlipidemia Denies [place],DM,CVA,Lung disease,renal dise ase Negative screening colonoscopy in [facility] of 2018 Surgical History Surgery Date(Month/Year) Knee surgery x 3 (2)left (1)right 2004
--- NOTE | 2024-12-19 08:05 | A.OFFVIS_ITS ---
Intake Visit Reasons: elevated PSA Intake Note: patient presents today for: new pt elavated PSA urology medications: none blood thinners: none labs done 10/20/24: PSA 5.15 today's PVR: 14mls Content Analyst Required: No Accompanied by: Self / Same As Patient Allergies No Known Allergies Allergy (Verified 12/19/24 08:41) Medication List - Last Reconciled 12/19/24 by DIGNA Youssef calcium carbonate (Calcium 500) 500 mg PO DAILY glucosamine sulfate (Glucosamine) 500 mg PO DAILY magnesium 500 mg PO DAILY multivitamin 1 tab PO DAILY simvastatin 20 mg PO BEDTIME HPI Comments Details: Gibran Hernandez is a 69-year-old male patient of Dr. Mendez. He has a past medical history of hyperlipidemia, tubular adenoma, BPH, and elevated PSA. He presents to the office today as a new patient for an elevated PSA. He reports having followed up with his PCP in discussing ongoing issues with nocturia at which time a PSA was drawn for further assessment evaluation and referral was made to Urology. These results were reviewed and communicated with the patient today PSAs: 07/28 2.3, 10/28 5.2 He reports having had ERIC with PCP an enlarged prostate was noted otherwise within normal limits. ERIC was offered however deferred. When asked he denies any known family history of prostate cancer. He reports his father did have prostate issues however not prostate cancer. He reports episodes of nocturia he had been experiencing has since subsided. He does discuss feeling this could be related to cycling. As he typically cycles 10-25 minutes per day. He reports having changed the see on his bike and feels symptoms have significantly improved. He currently denies any bothersome urinary issues or concerns. He denies urinary urgency, urinary frequency, incontinence, nocturia, hematuria, dysuria, foul smelling urine, changes to urinary stream, flank pain, fever, and or chills. He is happy with his current voiding parameters. We did discussed at length potential causes of elevated PSA as well as further treatment options and risks and benefits of these treatment options. In office urinalysis results reviewed with the patient today. PVR 14 mLs. All questions were answered. He otherwise offers no other issues or concerns at this time. [facility] Medical History (Updated 12/19/24 @ 08:40 by Marcelina Mccrary, PARKING ATTENDANT-BC) Elevated PSA Tubular adenoma BPH (benign prostatic hyperplasia) Hyperlipidemia Surgical History (Updated 10/18/24 @ 15:59 by Ivette Metcalf) Hx of knee surgery History of esophagogastroduodenoscopy (EGD) H/O colonoscopy (~09/14/23) Social History Patient Tobacco Use Status: Never used Tobacco e-Cigarette/Vaping Use: Never Used Review of Systems Const All systems reviewed & are unremarkable except as noted in HPI and below Physical Exam Const General: cooperative, healthy appearing, comfortable, no acute distress, well developed, alert and awake Orientation/consciousness: patient oriented x3 Limitations: no limitations HEENT Head: Yes normal to inspection, Yes normocephalic and Yes atraumatic Ears: hearing grossly normal bilaterally Eyes General: appearance normal, both eyes and all related structures Neck Neck: Yes normal visual inspection and Yes trachea midline Chest Chest palpation & inspection: normal inspection of the chest Resp Effort & Inspection: normal respiratory effort and able to speak in complete sentences Cardio Rate: regular rate GI Inspection: Yes normal to inspection General: Yes no CVA tenderness Back/Spine/Pelvis Back: no CVA tenderness Skin General skin exam: no rashes or lesions noted Neuro General: patient oriented x3 Extrem General: Yes normal to inspection Psych Appearance: grossly normal and well kempt Mental Status: mental status grossly normal Speech and movement: Normal speech and movement present and Clear speech present Affect: normal affect Attitude: cooperative Thought process: Normal thought process present Thought content: Normal thought content present Insight: Fair insight present (Psych) Judgement: Fair judgement present (Psych) Office Procedures Post Void Residual Post Residual Void Post Void Residual (PVR): 14 [id number]-[id number] Void Residual by ultrasound Results AMB Urinalysis, Automated UA Leukoctes 0 Kristine/uL Last Edit by DAVID Acharya on 12/19/24 08:19 UA Nitrite Last Edit by DAVID Acharya on 12/19/24 08:19 UA Urobilinogen 0.2 mg/dL Last Edit by DAVID Acharya on 12/19/24 08:1 9 UA Protein 0 mg/dL Last Edit by DAVID Acharya on 12/19/24 08:19 UA pH 6.0 Last Edit by DAVID Acharya on 12/19/24 08:19 UA Blood 0 Tanner/uL Last Edit by DAVID Acharya on 12/19/24 08:19 UA Specific Ackerly 1.010 Last Edit by DAVID Acharya on 12/19/24 08: 19 UA Ketone Last Edit by DAVID Acharya on 12/19/24 08:19 UA Bilirubin 0 mg/dL Last Edit by DAVID Acharya on 12/19/24 08:19 UA Glucose 0 mg/dL Last Edit by DAVID Acharya on 12/19/24 08:19 Results Reviewed Results Reviewed: Laboratory Last Values Urine pH (Auto) 6.0 12/19/24 08:19 Specific Ackerly (Auto) 1.010 12/19/24 08:19 Urine Protein (Auto) 0 mg/dL 12/19/24 08:19 Glucose (UA)(Auto) 0 mg/dL 12/19/24 08:19 Urine Blood (Auto) 0 Tanner/uL 12/19/24 08:19 Urine Bilirubin (Auto) 0 mg/dL 12/19/24 08:19 Urine Urobilinogen (Auto) 0.2 mg/dL 12/19/24 08:19 Leukocyte Esterase (Auto) 0 Kristine/uL 12/19/24 08:19 Assessment & Plan Assessment & Plan (1) Elevated PSA: Code(s): R97.20 - Elevated prostate specific antigen [PSA] Category: Medical Plan In office urinalysis results reviewed with the patient today; as noted above. PVR 14 mL. We did discussed potential causes of elevated PSA and further treatment options and risks and benefits of these treatment options. All questions were answered. ERIC was offered however deferred. Will obtain redraw of PSA with no sex the night before, no caffeine morning of, and no heavy lifting 1-2 days prior. Will obtain retroperitoneal ultrasound for further assessment evaluation. Patient denies any bothersome urinary issues or concerns. He reports be happy with current voiding parameters. Follow-up in 1-3 months with imaging and labs; or sooner with any issues, concerns, and or questions. Orders: Orders AMB Post Void Residual by ultrasound Today N40.0 - Benign prostatic hyperplasia without lower urinary tract symptoms AMB Urinalysis Automated Today Z13.9 - Encounter for screening, unspecified PSA,Total (Free>4and<10) Today R97.20 - Elevated prostate specific antigen [PSA] US retroperitoneal comp Today R35.1 - Nocturia, R97.20 - Elevated prostate specific antigen [PSA] Patient Instructions: The patient had an opportunity to ask questions regarding the treatment plan. All questions were answered. Physical exam, labs, and imaging were discussed and reviewed in detail. As well as risks, benefits, and discussion of treatment choices. No major barriers to understanding were identified. The patient expressed understanding and agreement with the above treatment plan. The patient was made aware they should contact our office by phone for worsening of their current condition, the appearance of new symptoms, or with any questions or concerns. Compliance is encouraged with any medications and follow up testing that is ordered. It is a privilege to be allowed the opportunity to participate in? your urological care.? Again, if you have any questions or concerns If you have any questions or concerns please do not hesitate to contact me. The office is [phone]. This note is constructed using voice recognition software. While every effort has been made to ensure accuracy commanding officer garage errors may have been included. Yours sincerely, JOSE ENRIQUE Youssef-JUSTIN Coding Level of Care Code New Pt Level 3 (30069) Diagnoses Elevated PSA R97.20 CPT Codes Post Residual Void - PVR CPT Code: 11621-Beqt Void Residual by ultrasound ([id number])
== END 2024-12-19 08:42 | disposition home or self-care (01) ==
LOC: HO.HUSH 07:48
PROVIDERS: PCP Physician Assistant; Visit Provider Nurse Practitioner Family
DX: Z13.9 Encounter for screening, unspecified (principal); R97.20 Elevated prostate specific antigen [PSA]
CPT/HCPCS: 99203

== ENCOUNTER → 2024-12-19 07:47 | Outpatient (BNVA) | payer MEDICARE, OTHER, SELFPAY | PROVIDERS: PCP Physician Assistant; Visit Provider Nurse Practitioner Family | DX: R97.20 Elevated prostate specific antigen [PSA] (principal); N40.0 Benign prostatic hyperplasia without lower urinary tract symptoms; Z13.9 Encounter for screening, unspecified | CPT/HCPCS: 51798; 81003; 99202 ==

== ENCOUNTER 2024-12-19 08:58 | Outpatient (REF) | payer MEDICARE, OTHER, SELFPAY ==
[2024-12-19 11:24] LABS: PSA,Total (Free>4and<10) 2.72 ng/mL (0.00-4.00)
== END 2024-12-19 08:59 | disposition home or self-care (01) ==
LOC: HO.10HDL 08:58
PROVIDERS: Visit Provider Nurse Practitioner Family
DX: Z12.5 Encounter for screening for malignant neoplasm of prostate (principal); R97.20 Elevated prostate specific antigen [PSA]
CPT/HCPCS: 36415; 84153

== ENCOUNTER 2025-02-06 11:13 | Outpatient (REF) | payer MEDICARE, OTHER, SELFPAY ==
--- OUTSIDE RECORDS SUMMARY | 2023-09-14 05:50 | XMS_ITS ---
Author Organization [facility] Address [address] [place] [address] Care Team Providers Care American Studies Professor Name Role Phone Ishan (RETIRED) Gareth TEMPLE Primary Care Provide r Unavailable Alexis Moon Unavailable [phone] REASON FOR VISIT screening,hx polyps Problems Problem Type SNOMED Code ICD Code Onset Dates Problem Status W/U Status Risk Notes Problem Diverticular disease of colon (341341266) Diverticulosis of large intestine without perforation or abscess without bleeding (K57.30) Active confirmed Encounters Encounter Location Date Provider Diagnosis [facility] Outpatient [address] [place] [phone] 09/14/2023 Alexis Moon Encounter for scre ening colonoscopy Z12.11 ; Colon polyps K63.5 ; Rectal polyp K62.1 ; Diverticulosis of large intestine without perforation or abscess without bleeding K57.30 and Other hemorrhoids K64.8 Assessments Encounter Date Diagnosis (ICD Code) Assessment Notes Treatment Notes Treatment Clinical Notes Section Notes 09/14/2023 Encounter for screening colonoscopy (ICD-10 - Z12.11) 09/14/2023 Colon polyps (ICD-10 - K63.5) 09/14/2023 Rectal polyp (ICD-10 - K62.1) 09/14/2023 Diverticulosis of large intestine without perforation or abscess without bleeding (ICD-10 - K57.30) 09/14/2023 Other hemorrhoids (ICD-10 - K64.8) Plan Of Treatment No Information Progress Notes * BHARATH IRVIN GDOB:[birth year] (69 yo M)Acc No.[id number]:09/14/2023 COLON WITH MAC Patient: BHARATH ONTIVEROS Provider: Marcel Moon MD :1955 A ge:68 Y S ex:Male Date:09/14/2023 Address:[address] [place] [address], [id number] Pcp:Gareth Olmstead (RETIRED )MD Subjective: * Chief Complaints: * 1 . Screening,hx polyps. * Medical History: Objective: * Vitals: Assessment: * Assessment: 1. E ncounter for screening colonoscopy - Z12.11 (Primary) 2 . C olon polyps - K63.5 3 . R ectal polyp - K62.1 4 . D iverticulosis of large intestine without perforation or abscess without bleeding - K57.30 5 . O ther hemorrhoids - K64.8 Plan: * Treatment: * Procedure Codes: 4 5385 LESION REMOVAL COLONOSCOPY, Modifiers: PT , 0529F INTRVL 3+YRS PTS CLNSCP DOCD, 0528F RCMND FLW-UP 10 YRS DOCD, Modifiers: 1P * * The named appointment provid er may or may not be the originator of this progress note, and it is not deemed complete until electronically signed by the appointment provider. Sign off status: Pending * Provider: Marcel Moon MD Date: 0 09/14/2023 Generated for Kalyani butcher/Coretta/Melitting on: 04/08/2024 02:14 PM EST
--- NOTE | ~2025-02-06 | US_ITS ---
CLINICAL HISTORY: R97.20 - Elevated prostate specific antigen [PSA] US Renal Comparison: None provided Findings: Right kidney normal size and echotexture, 10.3 cm length. Left kidney normal size and echotexture, 8.9 cm length. No hydronephrosis of either kidney. Normal color Doppler. Urinary bladder is unremarkable. Prevoid volume 167 mL. Postvoid volume 1.5 mL. Bilateral ureteral jets are visualized. The prostate gland is enlarged measuring 52 mL in volume and demonstrates lobularity and the question of a 2.5 cm discrete hypoechoic nodule. IMPRESSION: 1. Normal kidneys. 2. No significant postvoid residual. 3. Enlarged prostate gland with lobularity and the question of a discrete 2.5 cm hypoechoic nodule. This document has been electronically signed by: Lucas Glynn MD on 02/07/2025 11:14:02
--- OUTSIDE RECORDS SUMMARY | 2025-02-06 14:14 | XMS_ITS | Patient Health Record ---
Author Organization [facility] Address [address] [place] [address] Care Team Providers Care Cardiovascular Lab Director Name Role Phone Ishan (RETIRED) Gareth TEMPLE Primary Care Provide r Unavailable Alexis Moon Unavailable [phone] Allergies No Known Allergies Reason For Referral [...] Problem Status W/U Status Risk Notes Problem Screening for malignant neoplasm of colon (074428211) Encounter for screening for malignant neoplasm of colon (Z12.11) Active confirmed Problem Diverticular disease of colon (525070269) Diverticulosis of large intestine without perforation or abscess without bleeding (K57.30) Active confirmed Problem History of adenomatous polyp of colon (730290633) Hx of adenomatous colonic polyps (Z86.010) Active confirmed Problem Pre-procedure evaluation check (210187655) Pre-procedural examination (Z01.818) Active confirmed Plan Of Treatment Pending Test Test Name Order Date Pathology 09/14/2023 Future Test Test Name Order Date COLONOSCOPY 07/27/2012 COLONOSCOPY 02/16/2018 COLONOSCOPY 06/25/2023 Insurance Providers Payer Name Payer Address Payer Phone Subscriber Number Group Number Insured Name Patient Relationship to Insured Coverage Start Date Coverage End Date MEDICARE OF [place] [address] [place] [id number] ALBARO BHARATH Self - patient is the insured [facility] [address] [facility] [phone] [id number] BHARATH IRVIN Self - patient is the insured Medical (General) History Medical History History ICD Code Colonoscopy 07-05-2007 and 2012-small tubular adenoma removed-also, had diverticulosis and internal hemorrhoids EGD with removal of esophage al foregin body (food bolus) 08-27-1998--had a normal F/U EGD in 11/1998 Hyperlipidemia Denies [place],DM,CVA,Lung disease,renal dise ase Negative screening colonoscopy in [facility] 2018 Surgical History Surgery Date(Month/Year) Knee surgery x 3 (2)left (1)right 2004
== END 2025-02-06 11:14 | disposition home or self-care (01) ==
LOC: HO.HMGCX 11:13
PROVIDERS: PCP Physician Assistant; Visit Provider Nurse Practitioner Family
DX: R97.20 Elevated prostate specific antigen [PSA] (principal); R35.1 Nocturia
CPT/HCPCS: 76770

== ENCOUNTER → 2025-02-06 11:18 | Outpatient (BNV) | payer MEDICARE, OTHER, SELFPAY | PROVIDERS: PCP Physician Assistant; Visit Provider Radiology Vascular & Interventional Radiology | DX: N40.0 Benign prostatic hyperplasia without lower urinary tract symptoms (principal) | CPT/HCPCS: 76770 ==

== ENCOUNTER 2025-02-21 08:50 | Outpatient (AMB) | payer MEDICARE, OTHER, SELFPAY ==
--- NOTE | 2025-02-21 09:12 | A.OFFVIS_ITS ---
Intake Visit Reasons: 2m/US/PSA Intake Note: Patient presents today for 2m/US/PSA * 12/19 Total PSA:2.72 * 02/07 Retroperitoneum US Urology Medication:None Blood Thinner:None Antibiotic Allergies:None PVR: Accompanied by: Self / Same As Patient Allergies No Known Allergies Allergy (Verified 02/21/25 09:33) Medication List - Last Reconciled 02/21/25 by JOSE ENRIQUE Youssef- calcium carbonate (Calcium 500) 500 mg PO DAILY glucosamine sulfate (Glucosamine) 500 mg PO DAILY magnesium 500 mg PO DAILY multivitamin 1 tab PO DAILY simvastatin 20 mg PO BEDTIME HPI Comments Details: Gibran Hernandez is a 69-year-old male patient of Dr. Mendez. He has a past medical history of hyperlipidemia, tubular adenoma, BPH, and elevated PSA. He presents to the office today for follow-up. Of note, patient was seen approximately 2 months ago as a new patient for an elevated PSA at which time a retroperitoneal ultrasound and redraw of PSA were ordered for further assessment evaluation. These results were reviewed and communicated with the patient today. 01/28 bilateral kidneys are normal in size and echotexture. Urinary bladder is unremarkable. The prostate gland is enlarged measuring 52 mL in volume. Normal kidneys. PSAs are as follows: PSAs: 07/28 2.3, 10/28 5.2, 12/29 2.7 We did discuss decrease in PSA. He reports he believes this was will related to his cycling. He typically cycles 10-25 minutes a day. He has changed the seed on his bike and feels this is also been helpful. We did discuss potential causes of labile PSA as well as enlarged prostate noted on imaging. We did discussed further treatment options and risks and benefits of these treatment options. He currently denies any bothersome urinary issues or concerns. He denies urinary urgency, urinary frequency, incontinence, nocturia, hematuria, dysuria, foul smelling urine, changes to urinary stream, flank pain, fever, and or chills. He is happy with his current voiding parameters. Unable to obtain urine for urinalysis as patient unable to void. PVR 0 mL. Information provided regarding in office cystoscopy and potential GreenLight laser as treatment options for enlarged prostate. He denies any known family history of prostate cancer. He reports having had his ERIC with his PCP. All questions were answered. He otherwise offers no other issues or concerns at this time. [facility] Medical History Elevated PSA Tubular adenoma BPH (benign prostatic hyperplasia) Hyperlipidemia Surgical History Hx of knee surgery History of esophagogastroduodenoscopy (EGD) H/O colonoscopy (~09/14/23) Social History Patient Tobacco Use Status: Never used Tobacco e-Cigarette/Vaping Use: Never Used Review of Systems Const All systems reviewed & are unremarkable except as noted in HPI and below Physical Exam Const General: cooperative, healthy appearing, comfortable, no acute distress, well developed, alert and awake Orientation/consciousness: patient oriented x3 Limitations: no limitations HEENT Head: Yes normal to inspection, Yes normocephalic and Yes atraumatic Ears: hearing grossly normal bilaterally Eyes General: appearance normal, both eyes and all related structures Neck Neck: Yes normal visual inspection and Yes trachea midline Chest Chest palpation & inspection: normal inspection of the chest Resp Effort & Inspection: normal respiratory effort and able to speak in complete sentences Cardio Rate: regular rate GI Inspection: Yes normal to inspection General: Yes no CVA tenderness Back/Spine/Pelvis Back: no CVA tenderness Skin General skin exam: no rashes or lesions noted Neuro General: patient oriented x3 Extrem General: Yes normal to inspection Psych Appearance: grossly normal and well kempt Mental Status: mental status grossly normal Speech and movement: Normal speech and movement present and Clear speech present Affect: normal affect Attitude: cooperative Thought process: Normal thought process present Thought content: Normal thought content present Insight: Fair insight present (Psych) Judgement: Fair judgement present (Psych) Results Reviewed Results Reviewed: Ordering Physician: Marcelina Mccrary Date of Service: 02/06/25 Procedure(s): US retroperitoneal comp Accession Number(s): [id number] cc: Oksana Mendez; Marcelina Mccrary~ Reason for Exam: R97.20 - Elevated prostate specific antigen [PSA] CLINICAL HISTORY: R97.20 - Elevated prostate specific antigen [PSA] US Renal Comparison: None provided Findings: Right kidney normal size and echotexture, 10.3 cm length. Left kidney normal size and echotexture, 8.9 cm length. No hydronephrosis of either kidney. Normal color Doppler. Urinary bladder is unremarkable. Prevoid volume 167 mL. Postvoid volume 1.5 mL. Bilateral ureteral jets are visualized. The prostate gland is enlarged measuring 52 mL in volume and demonstrates lobularity and the question of a 2.5 cm discrete hypoechoic nodule. IMPRESSION: 1. Normal kidneys. 2. No significant postvoid residual. 3. Enlarged prostate gland with lobularity and the question of a discrete 2.5 cm hypoechoic nodule. Assessment & Plan Assessment & Plan (1) Elevated PSA: Code(s): R97.20 - Elevated prostate specific antigen [PSA] Category: Medical (2) BPH (benign prostatic hyperplasia): Code(s): N40.0 - Benign prostatic hyperplasia without lower urinary tract symptoms Category: Medical (3) Enlarged prostate: Code(s): N40.0 - Benign prostatic hyperplasia without lower urinary tract symptoms Category: Medical Plan Unable to obtain urine for urinalysis today as patient unable to void however PVR 0 mL. Most recent PSA results reviewed with the patient today; as noted above. Recent retroperitoneal ultrasound results reviewed with the patient today; as noted above. We did discussed potential causes for labile PSA/elevated PSA We did discuss further treatment options of enlarged prostate as well as elevated PSA All questions were answered. Will continue with surveillance monitoring at this time. Will obtain PSA in 4-6 months. We did discussed avoiding sex the night before, no caffeine morning of, and no heavy lifting 1-2 days prior as well as cycling prior to obtaining PSA Patient denies any bothersome urinary issues or concerns. He reports be happy with current voiding parameters. Follow-up in 3-4 with PSA and PVR; or sooner with any issues, concerns, and or questions. Orders: Orders Prostate Specific Antigen 4 Months N40.0 - Benign prostatic hyperplasia without lower urinary tract symptoms, R97.20 - Elevated prostate specific antigen [PSA] Patient Instructions: The patient had an opportunity to ask questions regarding the treatment plan. All questions were answered. Physical exam, labs, and imaging were discussed and reviewed in detail. As well as risks, benefits, and discussion of treatment choices. No major barriers to understanding were identified. The patient expressed understanding and agreement with the above treatment plan. The patient was made aware they should contact our office by phone for worsening of their current condition, the appearance of new symptoms, or with any questions or concerns. Compliance is encouraged with any medications and follow up testing that is ordered. It is a privilege to be allowed the opportunity to participate in? your urological care.? Again, if you have any questions or concerns If you have any questions or concerns please do not hesitate to contact me. The office is [phone]. This note is constructed using voice recognition software. While every effort has been made to ensure accuracy combustion engineer errors may have been included. Yours sincerely, DIGNA Youssef Coding Level of Care Code Est Pt Level 3 (57371) Complex EM visit Add On G2211 Diagnoses Elevated PSA R97.20 BPH (benign prostatic hyperplasia) N40.0 Enlarged prostate N40.0
== END 2025-02-21 09:55 | disposition home or self-care (01) ==
LOC: HO.HUSH 08:50
PROVIDERS: PCP Physician Assistant; Visit Provider Nurse Practitioner Family
DX: R97.20 Elevated prostate specific antigen [PSA] (principal); N40.0 Benign prostatic hyperplasia without lower urinary tract symptoms
CPT/HCPCS: 99213; G2211

== ENCOUNTER → 2025-02-21 08:50 | Outpatient (BNVA) | payer MEDICARE, OTHER, SELFPAY | PROVIDERS: PCP Physician Assistant; Visit Provider Nurse Practitioner Family | DX: R97.20 Elevated prostate specific antigen [PSA] (principal); N40.0 Benign prostatic hyperplasia without lower urinary tract symptoms; E78.5 Hyperlipidemia, unspecified; Z86.018 Personal history of other benign neoplasm | CPT/HCPCS: 51798; 99212 ==